=== PATIENT | female | born 1990 | race Caucasian/White ===

== ENCOUNTER 2020-12-24 14:13 | Emergency (ER) | payer OTHER, MEDICAID ==
[~2020-12-24] VITALS: Ht 154.9 cm; Wt 59.0 kg
[~2020-12-24 14:13] MED LIST: DARVOCET-N 1001 EACH PO; MACROBID 100 M100 M1 PO; NOHOMEMEDICATIONS; PHENERGAN 25 MG25 M1 PO
[2020-12-24] MEDS ORDERED: ALEVE220 M1 PO (14:24)
[2020-12-24] MEDS ORDERED: BIRTH CONTROL (14:24)
[2020-12-24] MEDS ORDERED: ONDANSETRON HCL4 M2 PO (15:46)
[2020-12-24] MEDS ORDERED: BUTALB-APAP-CA1 EACH PO (15:46)
[2020-12-24 16:12] VITALS: BP 110/68
== END 2020-12-24 16:13 | disposition home or self-care (01) ==
LOC: M.ERS 14:13
DX: G43.909 Migraine, unspecified, not intractable, without status migrainosus (principal); Z98.51 Tubal ligation status